=== PATIENT | male | born 1995 | race Two or more races ===

== ENCOUNTER 2024-06-05 11:05 | Emergency (ER) | payer OTHER, BC ==
[~2024-06-05] VITALS: Ht 172.7 cm; Wt 103.4 kg
[2024-06-05 13:08] VITALS: BP 131/78; TEMP 97.9; O2SAT 99
== END 2024-06-05 13:08 | disposition home or self-care (01) ==
LOC: ER 11:14
DX: S23.3XXA Sprain of ligaments of thoracic spine, initial encounter (principal); R41.0 Disorientation, unspecified; Z86.69 Personal history of other diseases of the nervous system and sense organs; V32.5XXA Driver of three-wheeled motor vehicle injured in collision with two- or three-wheeled motor vehicle in traffic accident, initial encounter; Y93.89 Activity, other specified; Y92.488 Other paved roadways as the place of occurrence of the external cause; Y99.8 Other external cause status
CPT/HCPCS: 70450-TC